=== PATIENT | male | born 1955 | race Caucasian/White ===

== ENCOUNTER 2024-02-16 11:38 | Inpatient (IN) | payer MEDICARE, MEDICAID ==
[~2024-02-16] VITALS: Ht 177.8 cm; Wt 85.3 kg
[~2024-02-16 11:38] MED LIST: VICOT PO
[2024-02-16] MEDS ORDERED: QUET100T PO (12:06)
[2024-02-16] MEDS ORDERED: DIVA-85 PO (12:06)
[2024-02-16] MEDS ORDERED: SPIR50TA27 PO (12:06)
[2024-02-16] MEDS ORDERED: BUME1TAB50 PO (12:06)
[2024-02-16 12:11] LABS: BASOPHILS % (AUTO) 0.8 % (0.0-2.0); EOSINOPHILS % (AUTO) 1.7 % (1.0-6.0); HEMATOCRIT 38.3 % (41-53); HEMOGLOBIN 12.8 g/dL (13.5-17.5); LYMPHOCYTES % (AUTO) 13.8 % (22.0-44.0); MEAN CORPUSCULAR HEMOGLOBIN 29.5 pg (26.0-34.0); MEAN CORPUSCULAR HGB CONC 33.3 G/dL (31.0-37.0); MEAN CORPUSCULAR VOLUME 88 fL (80-100); MONOCYTES # (AUTO) 0.7 K/uL (0.1-1.0); MONOCYTES % (AUTO) 9.2 % (2.0-9.0); NEUTROPHILS # (AUTO) 5.4 K/uL (1.8-7.7); NEUTROPHILS % (AUTO) 74.5 % (40.0-70.0); PLATELET COUNT (AUTO) 362 K/uL (150-450); RED BLOOD CELL COUNT(AUTO) 4.33 MIL/uL (4.50-5.90); RED CELL DISTRIBUTION WIDTH 14.5 % (11.5-14.5); WHITE BLOOD COUNT (AUTO) 7.3 K/uL (4.5-11.0)
[2024-02-16 12:15] LABS: APPEARANCE,URINE CLEAR (CLEAR); BILIRUBIN,URINE NEGATIVE (NEGATIVE); COLOR,URINE LIGHT YELLOW (YELLOW); GLUCOSE, URINE (UA) NEGATIVE (NEGATIVE); KETONES,URINE NEGATIVE (NEGATIVE); LEUKOCYTE ESTERASE ,URINE NEGATIVE (NEGATIVE); NITRATE,URINE NEGATIVE (NEGATIVE); OCCULT BLOOD,URINE NEGATIVE (NEGATIVE); PH,URINE 6.5 (5.0-8.0); PH,URINE DRUG SCREEN 6.5 (5.0-8.0); PROTEIN,URINE NEGATIVE (NEGATIVE); SPECIFIC GRAVITIY, URINE 1.011 (1.003-1.030); UROBILINOGEN,URINE <=1.0 mg/dL (<=1.0)
[2024-02-16 12:22] LABS: ANION GAP 7 mmol/L (8-16); CALCIUM, TOTAL 9.2 mg/dL (8.8-10.5); CARBON DIOXIDE 32 mmol/L (22-29); CHLORIDE 97 mmol/L (98-107); CREATININE 1.54 mg/dL (0.60-1.30); GLOMERULAR FILTR. RATE CALC 45 mL/min (>60); GLUCOSE,RANDOM 133 mg/dL (70-110); POTASSIUM 3.4 mmol/L (3.5-5.1); SODIUM SERUM 136 mmol/L (136-145); UREA NITROGEN, BLOOD 48 mg/dL (7-18)
[2024-02-16 12:27] LABS: ALCOHOL, URINE DRUG SCREEN NEGATIVE (NEGATIVE); AMPHET/METH SCREEN,URINE NEGATIVE (NEGATIVE); BARBITURATE SCREEN, URINE NEGATIVE (NEGATIVE); BENZODIAZEPINES SCREEN,URINE NEGATIVE (NEGATIVE); CANNABINOID SCREEN,URINE NEGATIVE (NEGATIVE); COCAINE SCREEN,URINE NEGATIVE (NEGATIVE); METHADONE SCREEN, URINE NEGATIVE (NEGATIVE); OPIATE SCREEN,URINE NEGATIVE (NEGATIVE); PHENCYCLIDINE SCREEN,URINE NEGATIVE (NEGATIVE)
[2024-02-16 12:28] LABS: ALCOHOL, BLOOD (SERUM) < 3 mg/dL (0-10)
[2024-02-16 13:10] LABS: COVID AG,FIA SOURCE NASAL SWAB
[2024-02-16] MEDS ORDERED: QUEtiapine FUMARATE 100 MG TABLET PO PRN (13:30)
[2024-02-16 13:33] LABS: SARS-COV2 (COVID) ANTIGEN,FIA Negative (Negative)
[2024-02-16] MEDS ORDERED: DiphenhydrAMINE HCL 50 MG/ML VIAL ONE (13:40)
[2024-02-16] MEDS ORDERED: HALOPERIDOL LACTATE 5 MG/ML VIAL ONE (13:40)
[2024-02-16] MEDS ORDERED: LORazepam 2 MG/ML VIAL ONE (13:40)
[2024-02-16] MEDS: HALOPERIDOL LACTATE 5 MG/ML VIAL IM ONE (13:48)
[2024-02-16] MEDS: LORazepam 2 MG/ML VIAL IM ONE (13:48)
[2024-02-16] MEDS: DiphenhydrAMINE HCL 50 MG/ML VIAL IM ONE (13:48)
[2024-02-16 19:10] VITALS: O2SAT 97
[2024-02-16 22:00] VITALS: BP 104/73; PULSE 75; RESP 18; TEMP 98; O2SAT 97
[2024-02-17 07:26] LABS: CHOL/HDL RATIO 3.9 (4.2-7.3)
[2024-02-17 07:27] LABS: HEMOGLOBIN A1C 6.3 % (3.8-5.6)
[2024-02-17] MEDS ORDERED: IBUPROFEN 400 MG TABLET PO PRN (10:00)
[2024-02-17] MEDS ORDERED: PETROLATUM,WHITE 28 GM JELLY TP PRN (10:00)
[2024-02-17] MEDS ORDERED: ONDANSETRON 4 MG TABLET PO PRN (10:00)
[2024-02-17] MEDS ORDERED: CloNIDine HCL 0.1 MG TABLET PO PRN (10:00)
[2024-02-17] MEDS ORDERED: ALBUTEROL SULFATE HFA 90 MCG/PUFF 8 GM INHALER IH PRN (10:00)
[2024-02-17] MEDS ORDERED: MAGNESIUM HYDROXIDE SUSPENSION 30 ML UDCUP PO PRN (10:00)
[2024-02-17] MEDS ORDERED: DOCUSATE SODIUM 100 MG CAPSULE PO PRN (10:00)
[2024-02-17] MEDS ORDERED: LOPERAMIDE HCL 2 MG CAPSULE PO PRN (10:00)
[2024-02-17] MEDS ORDERED: GuaiFENesin/D-METHORPHAN [SUGAR-FREE] 200-20MG/10 ML SYRUP UDCUP PO PRN (10:00)
[2024-02-17] MEDS ORDERED: ACETAMINOPHEN 325 MG TABLET PO PRN (10:00)
[2024-02-17] MEDS ORDERED: MAG HYDROX/ALUMINUM HYD/SIMETH ES 30 ML SUSPENSION UDCUP PO PRN (10:00)
[2024-02-17 10:43] VITALS: BP 103/71; PULSE 70; RESP 18; TEMP 97; O2SAT 97
[2024-02-17] MEDS: NICOTINE 14 MG/24 HOUR PATCH TD PRN (11:17)
[2024-02-17] MEDS: DIVALPROEX SODIUM 500 MG DR TABLET PO SCH (15:09)
[2024-02-17] MEDS: QUEtiapine FUMARATE 100 MG TABLET PO SCH (15:09)
[2024-02-17 22:40] VITALS: BP 136/79; PULSE 80; RESP 18; TEMP 97.9
[2024-02-18] MEDS: LORazepam 1 MG TABLET PO PRN (02:08)
[2024-02-18] MEDS: ZOLPIDEM TARTRATE 5 MG TABLET PO PRN (02:08)
[2024-02-18 07:21] LABS: HEMOGLOBIN A1C 6.6 % (3.8-5.6)
[2024-02-18 07:38] LABS: CALCIUM, TOTAL 8.3 mg/dL (8.8-10.5); CHOL/HDL RATIO 3.2 (4.2-7.3); CREATININE 1.32 mg/dL (0.60-1.30); POTASSIUM 4.3 mmol/L (3.5-5.1); THYROID STIMULATING HORMONE 2.98 uIU/mL (0.36-3.74)
[2024-02-18 08:15] VITALS: BP 113/70; PULSE 85; RESP 20; TEMP 97.6; O2SAT 95
[2024-02-18] MEDS: SPIRONOLACTONE 50 MG TABLET PO SCH (08:32)
[2024-02-18] MEDS: BUMETANIDE 1 MG TABLET PO SCH (08:32)
[2024-02-18 20:56] VITALS: BP 128/70; PULSE 95; RESP 18; TEMP 97.6
[2024-02-19 08:56] VITALS: BP 121/75; PULSE 81; RESP 19; TEMP 97.9; O2SAT 97
[2024-02-19 22:12] VITALS: BP 125/79; PULSE 103; RESP 19; TEMP 97.9; O2SAT 95
[2024-02-20 08:25] VITALS: BP 127/89; PULSE 103; RESP 18; TEMP 97.6; O2SAT 96
[2024-02-20 21:30] VITALS: BP 120/78; PULSE 106; RESP 18; TEMP 98.2; O2SAT 96
[2024-02-21 08:49] VITALS: BP 132/80; PULSE 98; RESP 18; TEMP 96.9; O2SAT 98
[2024-02-21 22:03] VITALS: BP 128/74; PULSE 110; RESP 18; TEMP 97.9; O2SAT 96
[2024-02-22 09:00] VITALS: BP 139/79; PULSE 98; RESP 19; TEMP 98.1; O2SAT 97
[2024-02-22] MEDS ORDERED: QUET100T PO (15:34)
[2024-02-22] MEDS ORDERED: DIVA-112 PO (15:34)
== END 2024-02-22 15:50 | DRG 885 ==
LOC: EMS 11:38 → 3EX 21:40
PROVIDERS: ADMIT Psychiatry & Neurology Psychiatry; ATTEND Psychiatry & Neurology Psychiatry
PROC: GZHZZZZ Group Psychotherapy (ICD-10-PCS; principal; 2024-02-17)
PROC: GZ51ZZZ Individual Psychotherapy, Behavioral (ICD-10-PCS; 2024-02-17)
DX: F25.1 Schizoaffective disorder, depressive type (principal); N18.9 Chronic kidney disease, unspecified; I13.0 Hypertensive heart and chronic kidney disease with heart failure and stage 1 through stage 4 chronic kidney disease, or unspecified chronic kidney disease; E87.6 Hypokalemia; K74.60 Unspecified cirrhosis of liver; M70.21 Olecranon bursitis, right elbow; Z20.822 Contact with and (suspected) exposure to COVID-19; K21.9 Gastro-esophageal reflux disease without esophagitis; I50.9 Heart failure, unspecified; K75.9 Inflammatory liver disease, unspecified; J44.9 Chronic obstructive pulmonary disease, unspecified; Z79.899 Other long term (current) drug therapy; F32.A Depression, unspecified; F41.9 Anxiety disorder, unspecified; X58.XXXA Exposure to other specified factors, initial encounter; Y93.89 Activity, other specified; Y92.89 Other specified places as the place of occurrence of the external cause; Y99.8 Other external cause status; M19.90 Unspecified osteoarthritis, unspecified site
CPT/HCPCS: 80048; 80061; 80307; 81003; 83036; 84443; 85025; 87081; 87481; 99285; G0378; G0480; J1200; J1630; J2060

== ENCOUNTER 2024-02-22 22:34 | Emergency (ER) | payer MEDICARE, OTHER ==
[~2024-02-22] VITALS: Ht 177.8 cm; Wt 84.1 kg
[~2024-02-22 22:34] MED LIST changes: +BUME1TAB50 PO; +DIVA-112 PO; +DIVA-85 PO; +QUET100T PO; +SPIR50TA27 PO
[2024-02-22 22:52] VITALS: TEMP 98.1
[2024-02-22 23:58] LABS: COVID AG,FIA SOURCE NASAL SWAB
[2024-02-23] MEDS: HALOPERIDOL LACTATE 5 MG/ML VIAL IM ONE (00:02)
[2024-02-23 00:03] LABS: BASOPHILS % (AUTO) 1.2 % (0.0-2.0); EOSINOPHILS % (AUTO) 2.6 % (1.0-6.0); HEMATOCRIT 38.2 % (41-53); HEMOGLOBIN 12.9 g/dL (13.5-17.5); LYMPHOCYTES # (AUTO) 1.2 K/uL (1.0-4.8); LYMPHOCYTES % (AUTO) 20.2 % (22.0-44.0); MEAN CORPUSCULAR HEMOGLOBIN 29.7 pg (26.0-34.0); MEAN CORPUSCULAR HGB CONC 33.6 G/dL (31.0-37.0); MEAN CORPUSCULAR VOLUME 88 fL (80-100); MONOCYTES # (AUTO) 0.7 K/uL (0.1-1.0); NEUTROPHILS # (AUTO) 3.9 K/uL (1.8-7.7); PLATELET COUNT (AUTO) 437 K/uL (150-450); RED BLOOD CELL COUNT(AUTO) 4.33 MIL/uL (4.50-5.90); WHITE BLOOD COUNT (AUTO) 6.1 K/uL (4.5-11.0)
[2024-02-23] MEDS: LORazepam 2 MG/ML VIAL IM ONE (00:03)
[2024-02-23] MEDS: DiphenhydrAMINE HCL 50 MG/ML VIAL IM ONE (00:03)
[2024-02-23 00:14] LABS: ANION GAP 7 mmol/L (8-16); CALCIUM, TOTAL 9.7 mg/dL (8.8-10.5); CARBON DIOXIDE 32 mmol/L (22-29); CHLORIDE 98 mmol/L (98-107); CREATININE 1.28 mg/dL (0.60-1.30); GLOMERULAR FILTR. RATE CALC 56 mL/min (>60); GLUCOSE,RANDOM 117 mg/dL (70-110); POTASSIUM 4.4 mmol/L (3.5-5.1); SODIUM SERUM 137 mmol/L (136-145); UREA NITROGEN, BLOOD 41 mg/dL (7-18)
[2024-02-23 00:18] LABS: SARS-COV2 (COVID) ANTIGEN,FIA Negative (Negative)
[2024-02-23 00:20] LABS: ALANINE AMINOTRANSFERASE 40 U/L (12-78); ALBUMIN 3.2 g/dL (3.4-5.0); ALCOHOL, BLOOD (SERUM) < 3 mg/dL (0-10); ALKALINE PHOSPHATASE 142 U/L (46-116); ASPARTATE AMINOTRANSFERASE 40 U/L (15-37); BILIRUBIN,TOTAL 0.2 mg/dL (0.1-1.0); TOTAL PROTEIN, SERUM 7.9 g/dL (6.4-8.2)
[2024-02-23 01:04] LABS: APPEARANCE,URINE CLEAR (CLEAR); BILIRUBIN,URINE NEGATIVE (NEGATIVE); COLOR,URINE COLORLESS (YELLOW); GLUCOSE, URINE (UA) NEGATIVE (NEGATIVE); KETONES,URINE NEGATIVE (NEGATIVE); LEUKOCYTE ESTERASE ,URINE NEGATIVE (NEGATIVE); NITRATE,URINE NEGATIVE (NEGATIVE); OCCULT BLOOD,URINE NEGATIVE (NEGATIVE); PH,URINE 6.5 (5.0-8.0); PH,URINE DRUG SCREEN 6.5 (5.0-8.0); PROTEIN,URINE NEGATIVE (NEGATIVE); SPECIFIC GRAVITIY, URINE 1.008 (1.003-1.030); UROBILINOGEN,URINE <=1.0 mg/dL (<=1.0)
[2024-02-23 01:11] LABS: AMPHET/METH SCREEN,URINE NEGATIVE (NEGATIVE); BARBITURATE SCREEN, URINE NEGATIVE (NEGATIVE); BENZODIAZEPINES SCREEN,URINE NEGATIVE (NEGATIVE); CANNABINOID SCREEN,URINE NEGATIVE (NEGATIVE); COCAINE SCREEN,URINE NEGATIVE (NEGATIVE); METHADONE SCREEN, URINE NEGATIVE (NEGATIVE); OPIATE SCREEN,URINE NEGATIVE (NEGATIVE); PHENCYCLIDINE SCREEN,URINE NEGATIVE (NEGATIVE)
[2024-02-23 01:19] LABS: ALCOHOL, URINE DRUG SCREEN NEGATIVE (NEGATIVE)
[2024-02-23 02:30] VITALS: BP 125/78; PULSE 97; RESP 18; O2SAT 98
== END 2024-02-23 02:46 ==
LOC: EMS 22:36
DX: F20.9 Schizophrenia, unspecified (principal); F03.93 Unspecified dementia, unspecified severity, with mood disturbance; F32.A Depression, unspecified; F41.9 Anxiety disorder, unspecified; Z79.899 Other long term (current) drug therapy; Z98.890 Other specified postprocedural states; Z20.822 Contact with and (suspected) exposure to COVID-19
CPT/HCPCS: 99291; 87426; 80048; 80076; 81003; 85025; 36415; 80307; 96372; G0480; J1200; J1630; J2060